=== PATIENT | female | born 1955 | race Caucasian/White ===

== ENCOUNTER 2025-03-07 12:56 | Outpatient (AMB) | payer MEDICARE, SELFPAY ==
[2025-03-07 13:16] VITALS: BP 180/79; PULSE 68; RESP 18; TEMP 36.2; O2SAT 94; BMI 24.6
--- NOTE | 2025-03-07 13:16 | ORTHONT_ITS ---
Vital signs 03/07/25 13:16 Height 1.57 m Height Method Stated Weight 61.037 kg Weight Measurement Method Standing Scale BMI 24.6 BP 180/79 H Blood Pressure Source Automatic Cuff Blood Pressure Location Right Upper Arm Position Sitting Respiration 18 Pulse 68 Pulse Source Monitor Temp 97.2 F Temp Source Temporal Artery Scan Pulse Oximetry (%) 94 L Oxygen Delivery Method Room Air Comment PATIENT FORGOT MEDS Med/Allergies Allergies & Medications Allergies codeine Allergy (Verified 03/07/25 13:17) palpatations Exam Exam Breathing is nonlabored. Patient has a normal mood and affect. Bilateral extremities were evaluated and demonstrates sensation intact to light touch. Palpable pedal pulses are present. No significant edema is present. Bilateral hips were examined. The patient has no pain with log roll of the hips. Internal rotation to 30 degrees and external rotation to 30 degrees is painless. Negative FADIR. Left knee was examined today. The left knee is in reasonable alignment. Range of motion from 0-120 degrees. Knee is stable to varus and valgus as well as AP translation with <5mm. Patient has a negative McMurrays. There is no pain with patellofemoral compression and no crepitus noted. The knee is nontender to palpation. The right knee was also examined. The right knee is in varus alignment. Range of motion from 0-115 degrees. Knee is stable to varus and valgus as well as AP translation with <5mm. Patient has a negative McMurrays. There is no pain with patellofemoral compression and no crepitus noted. The knee is tender to palpation medially. Left knee demonstrates range of motion 0 to 80 degrees. Knee feels stable varus valgus stresses AP translation Assessment and Plan Problem List (1) Arthritis of right knee: Status: Acute Plan: Patient is a 69-year-old female with right knee pain that is been ongoing for several years. She tried Aleve and ibuprofen and has failed treatment. She has not had any injections. I would like to get weightbearing x-rays. She is a little hesitant to get a total knee replacement because of her Stiff left side. I would like to get x-rays of both knees we can discuss different treatment options depending on what that shows. Advanced Care Planning Discussion Advance care planning discussed with:: patient Office Procedures GNS Level of Care Nursing/Assessment Patient Status: Established Patient Nursing Assessment/Reassesment: Medication Reconciliation, Update PMH in EMR and Vital Signs Coordination of Care: Complex Care and Chronic Disease 1-5, Education Complex Pt/Fam, Consent,records obtained, informed consent, Lab and Imaging orders, Results/Orders obtained and Staff clarify orders Special Needs: Language special needs Established Patient Charge Established Patient Point Assignment: 110 Established Patient Point Charge: EP Level 3 (80-115) MA Intake Visit Data Collection New Patient or Established: Established Patient (seen at [facility] within 3 years) Reason for Visit:: BILATERAL KNEE PAIN, LEFT IS WORSE THAN RIGHT Seen by Clinical Staff ONLY (RN/MA): No Verbal consent obtained for Telemed visit?: No [employer] Supervisor Required: Yes PCP or OBGYN visit in last 3 months: Yes Hx Now: No Do You Feel Safe at Home: Yes Authorities Contacted: N/A Questionairres Past Medical History Past Medical History Have you ever been diagnosed with any of the following: Neurological Problems Seizures: No Cardiology Problems Hypercholesterolemia: Yes (NOT TAKING) Congestive Heart Failure: No Edema: No Cellulitis: No Hypertension: Yes (TAKES MED) Varicose Veins: No Respiratory Problems Chronic Obstructive Pulmonary Disease (COPD): No Tuberculosis: No Stomache/Intestinal Problems Hepatitis: No Gastroesophageal Reflux Disease: Yes Obesity: Yes Genital/Urinary Problems Renal Disease: No Reproductive Problems Previous Pregnancies: Yes (X10) Endocrine Problems Diabetes Mellitus Type 1: No Diabetes Mellitus Type 2: Yes (TAKES PO MED) Psychologic Problems Depression: Yes Anxiety: Yes Other Problems Hospitalization: No Shingles: No Falls: No Blood Transfusions: No Blood Transfusion Reaction: No Anesthesia Reactions: No Chemotherapy: No Radiation Therapy: No MRSA: No Chicken Pox: No Measles: Yes Mumps: No Cancer: No Surgical History Hysterectomy: Yes (TOBY WITH FLORIDALMA SALP) Pacemaker: No Subjective Visit Visit for: new patient and knee Immunization / Flu Flu Vaccine in the Last 12 Months: No Flu Vaccine Exclusion Criteria: Refused by Patient History of Present Illness Chief complaint: Bilateral knee pain, left knee is worse than right Date of injury / onset of symptoms: 2 years ago Date of 1st surgery (if applicable): 2 years ago Patient is a pleasant 69-year-old female with right knee pain. She has had injections a long time ago. She tried Aleve and ibuprofen. For the left knee she had a total knee replacement 2 years ago and it was stiff. She had delayed physical therapy. The pain is affecting her quality life and happiness and she is using Personal History Occupation: uneployed Red flag PMH: BMI BMI Counceling provided: Yes Pain Pain level (0-10): 6 Pain duration: all day Pain location: inside (medial), outside (lateral), anterior and posterior Pain quality: sharp, dull and aching Pain timing: increases with activity Associated signs & symptoms: stiffness Ambulatory data Ambulatory device: walker Treatments Improvement with previous injections: No Improvement with PT: No Improvement with NSAIDS: no Review of Systems Review of Systems: All systems negative unless otherwise noted in HPI.
--- NOTE | 2025-03-07 13:24 | XR_ITS ---
Examination: Bilateral knees 2 views Right lateral knee left lateral knee 2 views Right axial knee left axial knee 2 views Technique: Bilateral AP knees standing single view, bilateral PA knees standing single view flexion Standing right lateral knee, left lateral knee 2 views Right axial left axial knee 2 views total 6 views Exam date and time: 2024 1342 hrs. Indications: Knee pain years Findings: Moderate osteopenia Severe narrowing [id number] medial joint space right knee Moderate to advanced osteoarthritis right patellofemoral joint No fracture Total left knee arthroplasty with satisfactory alignment No loosening of the prosthetic components No patellar dislocation Impression: Severe narrowing [id number] medial joint space right knee Moderate to advanced osteoarthritis right patellofemoral joint
== END 2025-03-07 13:45 | disposition home or self-care (01) ==
LOC: HODSRG 12:56
PROVIDERS: PCP Internal Medicine; Referring Provider Internal Medicine; Supervising Provider Orthopaedic Surgery Adult Reconstructive Orthopaedic Surgery; Visit Provider Orthopaedic Surgery Adult Reconstructive Orthopaedic Surgery
DX: M17.11 Unilateral primary osteoarthritis, right knee (principal); M25.561 Pain in right knee; E11.9 Type 2 diabetes mellitus without complications; I10 Essential (primary) hypertension; E78.00 Pure hypercholesterolemia, unspecified
CPT/HCPCS: 73564; 99213; G0463

== ENCOUNTER 2025-03-21 13:26 | Outpatient (AMB) | payer MEDICARE, SELFPAY ==
--- NOTE | 2025-03-21 13:46 | ORTHONT_ITS ---
Vital signs 03/21/25 13:47 Height 1.57 m Height Method Stated Weight 85.757 kg Weight Measurement Method Standing Scale BMI 34.7 BP 189/81 H Blood Pressure Source Automatic Cuff Blood Pressure Location Left Upper Arm Position Sitting Respiration 18 Pulse 64 Pulse Source Monitor Temp 97.4 F Temp Source Temporal Artery Scan Pulse Oximetry (%) 93 L Oxygen Delivery Method Room Air Med/Allergies Allergies & Medications Allergies codeine Allergy (Verified 03/21/25 13:47) palpatations Medication Reconciliation lisinopril 20 mg-hydrochlorothiazide 12.5 mg tablet 1 tab PO QDAY 08/16/21 [His tory Confirmed 03/21/25] metformin 500 mg tablet 500 mg PO QDAY 08/16/21 [History Confirmed 03/21/25] levothyroxine 125 mcg tablet (Synthroid) 150 mcg (1.2 x 125 mcg) PO QDAY Total thyroidectomy #30 tabs 09/11/21 [Rx Confirmed 03/21/25] ondansetron HCl 4 mg tablet (Zofran) 4 mg PO QID PRN nausea and vomiting #20 tabs 09/11/21 [Rx Confirmed 03/21/25] tramadol 50 mg tablet 50 mg PO BID PRN pain #20 tabs 09/11/21 [Rx Confirmed 03/21/25] Exam Exam Breathing is nonlabored. Patient has a normal mood and affect. Bilateral extremities were evaluated and demonstrates sensation intact to light touch. Palpable pedal pulses are present. No significant edema is present. Bilateral hips were examined. The patient has no pain with log roll of the hips. Internal rotation to 30 degrees and external rotation to 30 degrees is painless. Negative FADIR. Left knee was examined today. The left knee is in reasonable alignment. Range of motion from 0-120 degrees. Knee is stable to varus and valgus as well as AP translation with <5mm. Patient has a negative McMurrays. There is no pain with patellofemoral compression and no crepitus noted. The knee is nontender to palpation. The right knee was also examined. The right knee is in varus alignment. Range of motion from 0-115 degrees. Knee is stable to varus and valgus as well as AP translation with <5mm. Patient has a negative McMurrays. There is no pain with patellofemoral compression and no crepitus noted. The knee is tender to palpation medially. Left knee demonstrates range of motion 0 to 80 degrees. Knee feels stable varus valgus stresses AP translation X-rays demonstrate a left total knee replacement good alignment position. There are no radiolucent lines. On the right knee there is significant mbby-hb-bnyq arthritis medially with complete obliteration of the medial joint space and osteophytes Assessment and Plan Problem List (1) Arthritis of right knee: Status: Acute Plan: Patient is a 69-year-old female with right knee pain that is been ongoing for several years. She tried Aleve and ibuprofen and has failed treatment. She has not had any injections. I would like to get weightbearing x-rays. She is a l ittle hesitant to get a total knee replacement because of her Stiff left side.She has qclz-do-byzq arthritis on the right and is interested in a cortisone injection which is reasonable Recommend knee cortisone injection as patient would like to proceed with conservative treatment at this time. The risks and benefits of the procedure were reviewed with the patient and patient gave verbal consent to continue with the procedure. Procedure: performed by Dr. Hussein Using sterile technique the Right knee was thoroughly prepped with alcohol, and approximately 1 cc of Kenalog 40 mg/mL and 4 cc of 1% lidocaine was injected without resistance into the medial tibial femoral joint space. The patient tolerated the procedure. Advanced Care Planning Discussion Advance care planning discussed with:: patient Office Procedures GNS Level of Care Nursing/Assessment Patient Status: Established Patient Nursing Assessment/Reassesment: Medication Reconciliation, Update PMH in EMR and Vital Signs Coordination of Care: Complex Care and Chronic Disease 1-5, Education Complex Pt/Fam, Consent,records obtained, informed consent, Results/Orders obtained and Staff clarify orders Special Needs: Language special needs Established Patient Charge Established Patient Point Assignment: 95 Established Patient Point Charge: EP Level 3 (80-115) Surgical Proc/IM SQ injection Major Surgical Procedure: Yes (KNEE INJECTION ) Medication Given Medication Given Medication Given: Yes Documented Dose Given: 4 Route: Infiitration Medication Given Medication Given Medication Given: Yes Documented Dose Given: 1 Route: Infiitration Office Meds Xylocaine 10 mg/mL (1 %) injection solution Performing Provider: Babak Hussein MD Performing Location: [facility] Administered by: Babak Hussein MD on 03/21/25 14:16 Dose Route Admin Location Dispensed Lot Number Expiration Date [facility] [employer] 20 mL Infiltration 20 mL [id number] 04/30/28 53943-785-40 [employer]HENDRA GARCIA triamcinolone acetonide 40 mg/mL suspension for injection Performing Provider: Babak Hussein MD Performing Location: [facility] Administered by: Babak Hussein MD on 03/21/25 14:16 Dose Route Admin Location Dispensed Lot Number Expiration Date [facility] [employer] 40 mg intra-articular KNEE 1 mL [id number] 08/30/26 4127-3116-28 [facility] Intake Visit Data Collection New Patient or Established: Established Patient (seen at [facility] within 3 years) Reason for Visit:: XRAY RESULTS/INJECTION Full Stack Engineer Required: Yes PCP or OBGYN visit in last 3 months: Yes Hx Now: No Do You Feel Safe at Home: Yes Authorities Contacted: N/A Questionairres Past Medical History Past Medical History Have you ever been diagnosed with any of the following: Neurological Problems Seizures: No Cardiology Problems Hypercholesterolemia: Yes (NOT TAKING) Congestive Heart Failure: No Edema: No Cellulitis: No Hypertension: Yes (TAKES MED) Varicose Veins: No Respiratory Problems Chronic Obstructive Pulmonary Disease (COPD): No Tuberculosis: No Smoking: No Smoking Exposure: No Stomache/Intestinal Problems Hepatitis: No Gastroesophageal Reflux Disease: Yes Obesity: Yes Genital/Urinary Problems Renal Disease: No Reproductive Problems Previous Pregnancies: Yes (X10) Endocrine Problems Diabetes Mellitus Type 1: No Diabetes Mellitus Type 2: Yes (TAKES PO MED) Psychologic Problems Depression: Yes Anxiety: Yes Other Problems Hospitalization: No Shingles: No Falls: No Blood Transfusions: No Blood Transfusion Reaction: No Anesthesia Reactions: No Chemotherapy: No Radiation Therapy: No MRSA: No Chicken Pox: No Measles: Yes Mumps: No Cancer: No Surgical History Hysterectomy: Yes (TOBY WITH FLORIDALMA SALP) Pacemaker: No Subjective Visit Visit for: new patient, follow up visit, knee and x-rays Immunization / Flu Flu Vaccine in the Last 12 Months: No Flu Vaccine Exclusion Criteria: Refused by Patient and No Exclusion Criteria History of Present Illness Chief complaint: Bilateral knee pain, left knee is worse than right Date of injury / onset of symptoms: 2 years ago Date of 1st surgery (if applicable): 2 years ago Patient is a pleasant 69-year-old female with right knee pain. She has had injections a long time ago. She tried Aleve and ibuprofen. For the left knee she had a total knee replacement 2 years ago and it was stiff. She had delayed physical therapy. The pain is affecting her quality life and happiness and she is using Personal History Occupation: uneployed Red flag PMH: BMI BMI Counceling provided: Yes Pain Pain level (0-10): 6 Pain duration: all day Pain location: inside (medial), outside (lateral), anterior and posterior Pain quality: sharp, dull and aching Pain timing: night, increases with activity and stairs Associated signs & symptoms: weakness and stiffness Ambulatory data Ambulatory device: walker Treatments Improvement with previous injections: No Improvement with PT: No Improvement with NSAIDS: no Review of Systems Review of Systems: All systems negative unless otherwise noted in HPI.
[2025-03-21 13:47] VITALS: BP 189/81; PULSE 64; RESP 18; TEMP 36.3; O2SAT 93; BMI 34.7
== END 2025-03-21 13:54 | disposition home or self-care (01) ==
LOC: HODSRG 13:26
PROVIDERS: PCP Internal Medicine; Referring Provider Internal Medicine; Supervising Provider Orthopaedic Surgery Adult Reconstructive Orthopaedic Surgery; Visit Provider Orthopaedic Surgery Adult Reconstructive Orthopaedic Surgery
DX: M17.11 Unilateral primary osteoarthritis, right knee (principal); Z96.652 Presence of left artificial knee joint; E78.00 Pure hypercholesterolemia, unspecified; I10 Essential (primary) hypertension
CPT/HCPCS: 20610; 99213; J3301; J3490; G0463

== ENCOUNTER 2025-06-20 12:50 | Outpatient (AMB) | payer MEDICARE, SELFPAY ==
--- NOTE | 2025-06-20 12:55 | ORTHONT_ITS ---
Vital signs 06/20/25 13:05 Height 1.57 m Height Method Stated Weight 84.964 kg Weight Measurement Method Standing Scale BMI 34.4 BP 123/67 Blood Pressure Source Automatic Cuff Blood Pressure Location Right Upper Arm Position Sitting Respiration 18 Pulse 82 Pulse Source Monitor Temp 97.6 F Temp Source Temporal Artery Scan Pulse Oximetry (%) 92 L Oxygen Delivery Method Room Air Med/Allergies Allergies & Medications Allergies codeine Allergy (Verified 06/20/25 13:06) palpatations Medication Reconciliation lisinopril 20 mg-hydrochlorothiazide 12.5 mg tablet 1 tab PO QDAY 08/16/21 [Hist ory Confirmed 06/20/25] metformin 500 mg tablet 500 mg PO QDAY 08/16/21 [History Confirmed 06/20/25] levothyroxine 125 mcg tablet (Synthroid) 150 mcg (1.2 x 125 mcg) PO QDAY Total thyroidectomy #30 tabs 09/11/21 [Rx Confirmed 06/20/25] ondansetron HCl 4 mg tablet (Zofran) 4 mg PO QID PRN nausea and vomiting #20 tabs 09/11/21 [Rx Confirmed 06/20/25] tramadol 50 mg tablet 50 mg PO BID PRN pain #20 tabs 09/11/21 [Rx Confirmed 06/20/25] Exam Exam Breathing is nonlabored. Patient has a normal mood and affect. Bilateral extremities were evaluated and demonstrates sensation intact to light touch. Palpable pedal pulses are present. No significant edema is present. Bilateral hips were examined. The patient has no pain with log roll of the hips. Internal rotation to 30 degrees and external rotation to 30 degrees is painless. Negative FADIR. Left knee was examined today. The left knee is in reasonable alignment. Range of motion from 0-120 degrees. Knee is stable to varus and valgus as well as AP translation with <5mm. Patient has a negative McMurrays. There is no pain with patellofemoral compression and no crepitus noted. The knee is nontender to palpation. The right knee was also examined. The right knee is in varus alignment. Range of motion from 0-115 degrees. Knee is stable to varus and valgus as well as AP translation with <5mm. Patient has a negative McMurrays. There is no pain with patellofemoral compression and no crepitus noted. The knee is tender to palpation medially. Left knee demonstrates range of motion 0 to 80 degrees. Knee feels stable varus valgus stresses AP translation X-rays demonstrate a left total knee replacement good alignment position. There are no radiolucent lines. On the right knee there is significant [id number] arthritis medially with complete obliteration of the medial joint space and osteophytes Assessment and Plan Problem List (1) Arthritis of right knee: Status: Acute Plan: Patient is a 69-year-old female with right knee pain that is been ongoing for several years. She tried Aleve and ibuprofen and has failed treatment. She has not had any injections. I would like to get weightbearing x-rays. She is a li ttle hesitant to get a total knee replacement because of her Stiff left side.She has [id number] arthritis on the right and is interested in a cortisone injection which is reasonable Recommend knee cortisone injection as patient would like to proceed with conservative treatment at this time. The risks and benefits of the procedure were reviewed with the patient and patient gave verbal consent to continue with the procedure. Procedure: performed by Dr. Hussein Using sterile technique the Right knee was thoroughly prepped with alcohol, and approximately 1 cc of Kenalog 40 mg/mL and 4 cc of 1% lidocaine was injected without resistance into the medial tibial femoral joint space. The patient tolerated the procedure. Advanced Care Planning Discussion Advance care planning discussed with:: patient Office Procedures GNS Level of Care Nursing/Assessment Patient Status: Established Patient Nursing Assessment/Reassesment: Medication Reconciliation, Update PMH in EMR and Vital Signs Coordination of Care: Complex Care and Chronic Disease 1-5, Education Complex Pt/Fam, Consent,records obtained, informed consent, Results/Orders obtained and Staff clarify orders Special Needs: Language special needs Established Patient Charge Established Patient Point Assignment: 95 Established Patient Point Charge: EP Level 3 (80-115) Medication Given Medication Given Medication Given: Yes Documented Dose Given: 4 Route: Infiitration Medication Given Medication Given Medication Given: Yes Documented Dose Given: 1 Route: Infiitration Office Meds Xylocaine 10 mg/mL (1 %) injection solution Performing Provider: Babak Hussein MD Performing Location: [facility] Administered by: Babak Hussein MD on 06/20/25 13:18 Dose Route Admin Location Dispensed Lot Number Expiration Date [facility] Production Control Supervisor 20 mL Infiltration KNEE 20 mL [id number] 08/29/28 77579-442-86 MAHENDRA WEBB triamcinolone acetonide 40 mg/mL suspension for injection Performing Provider: Babak Hussein MD Performing Location: [facility] Administered by: Babak Hussein MD on 06/20/25 13:18 Dose Route Admin Location Dispensed Lot Number Expiration Date [facility] Production Control Supervisor 40 mg intra-articular KNEE 1 mL [id number] 12/30/26 78077-858-72 WOO COLLINS MA Intake Visit Data Collection New Patient or Established: Established Patient (seen at [facility] within 3 years) Reason for Visit:: 3 MONTH RIGHT KNEE INJECTION Seen by Clinical Staff ONLY (RN/MA): No Office Services Specialist Required: Yes PCP or OBGYN visit in last 3 months: Yes Hx Now: No Do You Feel Safe at Home: Yes Authorities Contacted: N/A Questionairres Past Medical History Past Medical History Have you ever been diagnosed with any of the following: Neurological Problems Cerebrovascular Accident (CVA): No Transient Ischemic Attacks (TIA): No Dementia: No Alzheimer's Disease: No Parkinson's Disease: No Brain Tumor: No Meningitis: No Seizures: No Epilepsy: No Multiple Sclerosis: No Cerebral Palsy: No Amyotrophic Lateral Sclerosis (ALS/Francheska Gehrig's): No Guillain-[place] Syndrome: No Spina Bifida: No Paralysis: No Peripheral Neuropathy: No Dodson's Palsy: No Subdural Hematoma: No Migraine: No Head Trauma: No Spinal Cord Injury: No Traumatic Brain Injury: No Cardiology Problems Myocardial Infarction: No Cardiac Arrhythmia: No Atrial Fibrillation: No Angina: No Heart Murmur: No Coronary Artery Disease: No Atherosclerotic Heart Disease: No Peripheral Vascular Disease: No Hypercholesterolemia: Yes (NOT TAKING) Aneurysm: No Congestive Heart Failure: No Congenital Heart Disease: No Valvular Heart Disease: No Rheumatic Fever: No Cardiomyopathy: No Edema: No Pericarditis: No Cellulitis: No Deep Vein Thrombosis: No Hypertension: Yes (TAKES MED) Hypotension: No Varicose Veins: No Respiratory Problems Chronic Obstructive Pulmonary Disease (COPD): No Asthma: No Bronchitis: No Emphysema: No Pneumonia: No Pulmonary Fibrosis: No Tuberculosis: No Pulmonary Embolism: No Pulmonary Edema: No Sleep Apnea: No CPAP Dependent: No Respiratory Aspiration: No Dyspnea: No Orthopnea: No Hx Cough: No Cough: No Wheezing: No Chest Deformities: No Smoking: No Smoking Cessation Counseling: No Smoking Exposure: No Tobacco Use: No Clubbing: No Exposure to Respiratory Irritants: No Intubation: No Stomache/Intestinal Problems Liver Cancer: No Hepatitis: No Cirrhosis: No Pancreatic Cancer: No Pancreatitis: No Celiac Disease: No Gall Bladder Disease: No Gastrointestinal Bleed: No Esophageal Varices: No Oneill's Esophagus: No Colitis: No Ulcerative Colitis: No Diverticulitis: No Diverticulosis: No Ulcer: No Colorectal Cancer: No Irritable Bowel: No Crohn's Disease: No Obstructive Bowel: No Hiatal Hernia: No Hemorrhoids: No Gastroesophageal Reflux Disease: Yes Polyps: No Obesity: Yes Genital/Urinary Problems Chronic Kidney Disease: No Renal Disease: No Kidney Stones: No Polycystic Kidney Disease: No Neurogenic Bladder: No Inguinal Hernia: No Dialysis: No Reproductive Problems Breast Cancer: No Endometriosis: No Fibroids: No Genital Herpes: No Gonorrhea: No Pelvic Inflammatory Disease: No Polycystic Ovarian Syndrome: No Previous Pregnancies: Yes (X10) Syphilis: No Uterine Prolapse: No Musculoskeletal Problems Muscular Dystrophy: No Myasthenia Gravis: No Marfan's Syndrome: No Bone Cancer: No Arthritis: No Rheumatoid Arthritis: No Osteoporosis: No Degenerative Disk Disease: No Gout: No Scoliosis: No Carpal Tunnel Syndrome: No Fibromyalgia: No Fractures: No Degenerative Joint Disease: No Osteomyelitis: No Poliovirus: No Head,Eye,Nose,Throat Problems Cataracts: No Glaucoma: No Blind: No Retinal Detachment: No Macular Degeneration: No Chronic Ear Infections: No Deafness: No Eye Prosthesis: No Endocrine Problems Diabetes Mellitus Type 1: No Diabetes Mellitus Type 2: Yes (TAKES PO MED) Hypoglycemia: No Morrison's Syndrome: No Oberon's Disease: No Hyperthyroidism: No Hypothyroidism: No Thyroid Cancer: No Parathyroid Disease: No Pituitary Disease: No Systemic Lupus Erythematosus: No Syndrome of Inappropriate Antidiuretic Hormone: No Adrenal Disease: No Graves' Disease: No Blood Problems Anemia: No Leukemia: No Hemophilia: No Thalassemia: No Sickle Cell Disease: No Clotting Problems: No Psychologic Problems Schizophrenia: No Recreational Drug Use: No Bipolar Disorder: No Depression: Yes Anxiety: Yes Behavior Problems: No Self-Mutilation: No Attention Deficit Disorder: No Attention Deficit Hyperactivity Disorder: No Depression: No Post Traumatic Stress Disorder: No Eating Disorder: No Other Problems Hospitalization: No Autoimmune Disease: No Down Syndrome: No Autism: No Developmental Delay: No Cosmetic Surgery: No Shingles: No Falls: No Blood Transfusions: No Blood Transfusion Reaction: No Anesthesia Reactions: No Organ Transplant: No Chemotherapy: No Radiation Therapy: No Hyperbaric Therapy: No MRSA: No VRSA: No Vancomycin-Resistant Enterococci: No Human Immunodeficiency Virus (HIV): No Chicken Pox: No Measles: Yes Mumps: No Rubella (Syriac Measles): No Pertussis: No Klebsiella Pneumoniae Carbapenemase Producing Bacteria: No Clostridium Difficile: No Hepatitis A: No Hepatitis B: No Hepatitis C: No Communicable Disease: No Cancer: No Cervical Cancer: No Lung Cancer: No Ovarian Cancer: No Surgical History Angioplasty: No Appendectomy: No Bariatric Surgery: No Breast Surgery: No Cancer Surgery: No Carotid Endarterectomy: No Cholecystectomy: No Colectomy: No Colostomy: No Coronary Artery Bypass Graft: No Valve Replacement: No Herniorrhaphy: No Total Hip Replacement: No Total Knee Replacement: No Hysterectomy: Yes (TOBY WITH FLORIDALMA SALP) Pacemaker: No Sinus Surgery: No Splenectomy: No TAHBSO-Total Abdominal Hysterectomy: No Thyroidectomy: No Ureter Stent: No Subjective Visit Visit for: follow up visit and knee Immunization / Flu Flu Vaccine in the Last 12 Months: No Flu Vaccine Exclusion Criteria: No Exclusion Criteria History of Present Illness Chief complaint: RIGHT KNEE INJECTION Date of injury / onset of symptoms: 2 years ago Date of 1st surgery (if applicable): 2 years ago Patient is a pleasant 69-year-old female with right knee pain. She has had injections a long time ago. She tried Aleve and ibuprofen. For the left knee she had a total knee replacement 2 years ago and it was stiff. She had delayed physical therapy. The pain is affecting her quality life and happiness and she is using [employer]. She did well with the last injection would like another 1 today Personal History Occupation: uneployed Red flag PMH: none BMI Counceling provided: Yes Pain Pain level (0-10): 5 Pain duration: all day Pain location: anterior Pain quality: sharp Pain timing: increases with activity Associated signs & symptoms: stiffness Ambulatory data Ambulatory device: cane Treatments Number of previous injections: 1 Improvement with previous injections: Yes Improvement with PT: No Improvement with NSAIDS: no Review of Systems Review of Systems: All systems negative unless otherwise noted in HPI.
[2025-06-20 13:05] VITALS: BP 123/67; PULSE 82; RESP 18; TEMP 36.4; O2SAT 92; BMI 34.4
== END 2025-06-20 13:09 | disposition home or self-care (01) ==
LOC: HODSRG 12:50
PROVIDERS: PCP Internal Medicine; Referring Provider Internal Medicine; Supervising Provider Orthopaedic Surgery Adult Reconstructive Orthopaedic Surgery; Visit Provider Orthopaedic Surgery Adult Reconstructive Orthopaedic Surgery
DX: M17.11 Unilateral primary osteoarthritis, right knee (principal); M25.561 Pain in right knee; I10 Essential (primary) hypertension; E78.00 Pure hypercholesterolemia, unspecified; K21.9 Gastro-esophageal reflux disease without esophagitis; E11.9 Type 2 diabetes mellitus without complications
CPT/HCPCS: 20610; 99213; J3301; J3490; G0463

== ENCOUNTER 2025-09-19 13:19 | Outpatient (AMB) | payer MEDICARE, SELFPAY ==
[2025-09-19 13:44] VITALS: BP 181/80; PULSE 73; RESP 19; TEMP 36.8; O2SAT 94; BMI 35.7
--- NOTE | 2025-09-19 13:44 | PD.ORTHCLVIS ---
Vital signs 09/19/25 13:44 Height 1.57 m Height Method Stated Weight 88.054 kg Weight Measurement Method Standing Scale BMI 35.7 BP 181/80 H Blood Pressure Source Automatic Cuff Blood Pressure Location Right Upper Arm Position Sitting Respiration 19 Pulse 73 Pulse Source Monitor Temp 98.3 F Temp Source Temporal Artery Scan Pulse Oximetry (%) 94 L Oxygen Delivery Method Room Air Med/Allergies Allergies & Medications Allergies codeine Allergy (Verified 09/19/25 13:45) palpatations Medication Reconciliation lisinopril 20 mg-hydrochlorothiazide 12.5 mg tablet 1 tab PO QDAY 08/16/21 [History Confirmed 09/19/25] metformin 500 mg tablet 500 mg PO QDAY 08/16/21 [History Confirmed 09/19/25] levothyroxine 125 mcg tablet (Synthroid) 150 mcg (1.2 x 125 mcg) PO QDAY Total thyroidectomy #30 tabs 09/11/21 [Rx Confirmed 09/19/25] ondansetron HCl 4 mg tablet (Zofran) 4 mg PO QID PRN nausea and vomiting #20 tabs 09/11/21 [Rx Confirmed 09/19/25] tramadol 50 mg tablet 50 mg PO BID PRN pain #20 tabs 09/11/21 [Rx Confirmed 09/19/25] Exam Exam Breathing is nonlabored. Patient has a normal mood and affect. Bilateral extremities were evaluated and demonstrates sensation intact to light touch. Palpable pedal pulses are present. No significant edema is present. Bilateral hips were examined. The patient has no pain with log roll of the hips. Internal rotation to 30 degrees and external rotation to 30 degrees is painless. Negative FADIR. Left knee was examined today. The left knee is in reasonable alignment. Range of motion from 0-120 degrees. Knee is stable to varus and valgus as well as AP translation with <5mm. Patient has a negative McMurrays. There is no pain with patellofemoral compression and no crepitus noted. The knee is nontender to palpation. The right knee was also examined. The right knee is in varus alignment. Range of motion from 0-115 degrees. Knee is stable to varus and valgus as well as AP translation with <5mm. Patient has a negative McMurrays. There is no pain with patellofemoral compression and no crepitus noted. The knee is tender to palpation medially. Left knee demonstrates range of motion 0 to 80 degrees. Knee feels stable varus valgus stresses AP translation X-rays demonstrate a left total knee replacement good alignment position. There are no radiolucent lines. On the right knee there is significant mekh-[id number]-[id number] arthritis medially with complete obliteration of the medial joint space and osteophytes Assessment and Plan Problem List (1) Arthritis of right knee: Status: Acute Plan: Patient is a 69-year-old female with right knee pain that is been ongoing for several years. She tried Aleve and ibuprofen and has failed treatment. She has not had any injections. I would like to get weightbearing x-rays. She is a little hesitant to get a total knee replacement because of her Stiff left side . She has enyb-xl-[id number] arthritis on the right and has failed conservative treatment with proceed with a right total knee replacement The nature and purpose of the total knee replacement, alternative method(s) of treatment, the material risks involved, and the possibility of complications were fully explained to the patient. The patient does NOT have any of the following contraindications to TKA: - Active infection of the knee joint, OR - Active systemic bacteremia, OR - Active skin infection or open wound at surgical site, OR - Neuropathic arthritis, OR - Severe, rapidly progressive neurological disease, OR - Severe medical condition that makes risks of surgery outweigh the potential benefit The patient was told the most common risks and complications associated with a total knee replacement include, but are not limited to: blood clots in the leg, fatal pulmonary embolism, dislocation of the prosthesis, intraoperative and postoperative fractures of the femur or tibia, infection, failure of the prosthesis or grafting materials, complications from anesthesia, reactions to blood transfusions, postoperative leg length inequality, instability of the knee replacement, nerve damage or injury, vascular injury, delayed wound healing, infection, other injury or even . In addition, there are risks associated with anesthesia given during this operation. Also, the patient was told that after undergoing a total knee replacement there may still be persistent pain or disability. The patient was informed that the success of this operation in part depends upon the mechanical devices which are going to be implanted and that these devices can fail or malfunction, and may need to be repaired or replaced and there are no guarantees as to the longevity of this device or its parts and that it or its parts could fail prematurely. The patient was also notified that during the course of surgery, there may be a need to use bone graft from donors, and that any bone graft used will be carefully screened for communicable diseases, including AIDS, hepatitis, Bala-Creutzfeldt, or other diseases, but despite the screening procedures, there is a small chance that they could contract one of these diseases. Finally, the patient was asked to follow completely and fully with all advice and recommended treatments, and that recovery and ultimate outcome are affected by their compliance with recommended treatment. We discussed the risks, benefits and treatment alternatives, and the patient is interested in proceeding with surgery. We will try to set this up as expeditiously as possible. Advanced Care Planning Discussion Advance care planning discussed with:: patient Office Procedures GNS Level of Care Nursing/Assessment Patient Status: Established Patient Nursing Assessment/Reassesment: Medication Reconciliation, Update PMH in EMR and Vital Signs Coordination of Care: Complex Care and Chronic Disease 1-5, Education Complex Pt/Fam, Consent,records obtained, informed consent, Results/Orders obtained and Staff clarify orders Established Patient Charge Established Patient Point Assignment: 95 Established Patient Point Charge: EP Level 3 (80-115) MA Intake Visit Data Collection New Patient or Established: Established Patient (seen at [facility] within 3 years) Reason for Visit:: FOLLOW UP Seen by Clinical Staff ONLY (RN/MA): No Verbal consent obtained for Telemed visit?: No Production Lead Required: Yes PCP or OBGYN visit in last 3 months: Yes Hx Now: No Do You Feel Safe at Home: Yes Authorities Contacted: N/A Questionairres Past Medical History Past Medical History Have you ever been diagnosed with any of the following: Neurological Problems Cerebrovascular Accident (CVA): No Transient Ischemic Attacks (TIA): No Dementia: No Alzheimer's Disease: No Parkinson's Disease: No Brain Tumor: No Meningitis: No Seizures: No Epilepsy: No Multiple Sclerosis: No Cerebral Palsy: No Amyotrophic Lateral Sclerosis (ALS/Francheska Gehrig's): No Guillain-Richfield Syndrome: No Spina Bifida: No Paralysis: No Peripheral Neuropathy: No Dodson's Palsy: No Subdural Hematoma: No Migraine: No Head Trauma: No Spinal Cord Injury: No Traumatic Brain Injury: No Cardiology Problems Myocardial Infarction: No Cardiac Arrhythmia: No Atrial Fibrillation: No Angina: No Heart Murmur: No Coronary Artery Disease: No Atherosclerotic Heart Disease: No Peripheral Vascular Disease: No Hypercholesterolemia: Yes (NOT TAKING) Aneurysm: No Congestive Heart Failure: No Congenital Heart Disease: No Valvular Heart Disease: No Rheumatic Fever: No Cardiomyopathy: No Edema: No Pericarditis: No Cellulitis: No Deep Vein Thrombosis: No Hypertension: Yes (TAKES MED) Hypotension: No Varicose Veins: No Respiratory Problems Chronic Obstructive Pulmonary Disease (COPD): No Asthma: No Bronchitis: No Emphysema: No Pneumonia: No Pulmonary Fibrosis: No Tuberculosis: No Pulmonary Embolism: No Pulmonary Edema: No Sleep Apnea: No CPAP Dependent: No Respiratory Aspiration: No Dyspnea: No Orthopnea: No Hx Cough: No Cough: No Wheezing: No Chest Deformities: No Smoking: No Smoking Cessation Counseling: No Smoking Exposure: No Tobacco Use: No Clubbing: No Exposure to Respiratory Irritants: No Intubation: No Stomache/Intestinal Problems Liver Cancer: No Hepatitis: No Cirrhosis: No Pancreatic Cancer: No Pancreatitis: No Celiac Disease: No Gall Bladder Disease: No Gastrointestinal Bleed: No Esophageal Varices: No Oneill's Esophagus: No Colitis: No Ulcerative Colitis: No Diverticulitis: No Diverticulosis: No Ulcer: No Colorectal Cancer: No Irritable Bowel: No Crohn's Disease: No Obstructive Bowel: No Hiatal Hernia: No Hemorrhoids: No Gastroesophageal Reflux Disease: Yes Obesity: Yes Genital/Urinary Problems Renal Disease: No Kidney Stones: No Polycystic Kidney Disease: No Neurogenic Bladder: No Inguinal Hernia: No Dialysis: No Reproductive Problems Breast Cancer: No Endometriosis: No Fibroids: No Genital Herpes: No Gonorrhea: No Pelvic Inflammatory Disease: No Polycystic Ovarian Syndrome: No Previous Pregnancies: Yes (X10) Syphilis: No Uterine Prolapse: No Musculoskeletal Problems Muscular Dystrophy: No Myasthenia Gravis: No Marfan's Syndrome: No Bone Cancer: No Arthritis: No Rheumatoid Arthritis: No Osteoporosis: No Degenerative Disk Disease: No Gout: No Scoliosis: No Carpal Tunnel Syndrome: No Fibromyalgia: No Fractures: No Degenerative Joint Disease: No Osteomyelitis: No Poliovirus: No Head,Eye,Nose,Throat Problems Cataracts: No Glaucoma: No Blind: No Retinal Detachment: No Macular Degeneration: No Chronic Ear Infections: No Deafness: No Eye Prosthesis: No Endocrine Problems Diabetes Mellitus Type 1: No Diabetes Mellitus Type 2: Yes (TAKES PO MED) Hypoglycemia: No [place]'s Syndrome: No Hendricks's Disease: No Hyperthyroidism: No Hypothyroidism: No Thyroid Cancer: No Parathyroid Disease: No Pituitary Disease: No Systemic Lupus Erythematosus: No Syndrome of Inappropriate Antidiuretic Hormone: No Adrenal Disease: No Graves' Disease: No Blood Problems Anemia: No Leukemia: No Hemophilia: No Thalassemia: No Sickle Cell Disease: No Clotting Problems: No Psychologic Problems Schizophrenia: No Recreational Drug Use: No Bipolar Disorder: No Depression: Yes Anxiety: Yes Behavior Problems: No Self-Mutilation: No Attention Deficit Disorder: No Attention Deficit Hyperactivity Disorder: No Depression: No Post Traumatic Stress Disorder: No Eating Disorder: No Other Problems Hospitalization: No Down Syndrome: No Autism: No Developmental Delay: No Cosmetic Surgery: No Shingles: No Falls: No Blood Transfusions: No Blood Transfusion Reaction: No Anesthesia Reactions: No Organ Transplant: No Chemotherapy: No Radiation Therapy: No Hyperbaric Therapy: No MRSA: No VRSA: No Vancomycin-Resistant Enterococci: No Human Immunodeficiency Virus (HIV): No Chicken Pox: No Measles: Yes Mumps: No Rubella (Kiswahili Measles): No Pertussis: No Klebsiella Pneumoniae Carbapenemase Producing Bacteria: No Clostridium Difficile: No Hepatitis A: No Hepatitis B: No Hepatitis C: No Communicable Disease: No Cancer: No Cervical Cancer: No Lung Cancer: No Ovarian Cancer: No Surgical History Angioplasty: No Appendectomy: No Bariatric Surgery: No Breast Surgery: No Cancer Surgery: No Carotid Endarterectomy: No Cholecystectomy: No Colectomy: No Colostomy: No Coronary Artery Bypass Graft: No Valve Replacement: No Herniorrhaphy: No Total Hip Replacement: No Total Knee Replacement: No Hysterectomy: Yes (TOBY WITH FLORIDALMA SALP) Pacemaker: No Sinus Surgery: No Splenectomy: No TAHBSO-Total Abdominal Hysterectomy: No Thyroidectomy: No Ureter Stent: No Subjective Visit Visit for: follow up visit Immunization / Flu Flu Vaccine in the Last 12 Months: No Flu Vaccine Exclusion Criteria: No Exclusion Criteria History of Present Illness Chief complaint: FOLLOW UP Date of injury / onset of symptoms: 2 years ago Date of 1st surgery (if applicable): 2 years ago Patient is a pleasant 69-year-old female with right knee pain. She has had injections a long time ago. She tried Aleve and ibuprofen. For the left knee she had a total knee replacement 2 years ago and it was stiff. She had delayed physical therapy. The pain is affecting her quality life and happiness and she is using awalker. She has tried NSAIDS, PT, and multiple injections. Personal History Occupation: uneployed Red flag PMH: BMI BMI Counceling provided: Yes Pain Pain level (0-10): 2 Pain duration: COMES AND GOES Pain location: anterior Pain quality: dull and aching Pain timing: increases with activity Associated signs & symptoms: none Ambulatory data Ambulatory device: cane Treatments Number of previous injections: 1 Improvement with previous injections: No Improvement with PT: No Improvement with NSAIDS: no Review of Systems Review of Systems: All systems negative unless otherwise noted in HPI.
== END 2025-09-19 14:02 | disposition home or self-care (01) ==
LOC: HODSRG 13:19
PROVIDERS: PCP Internal Medicine; Referring Provider Internal Medicine; Supervising Provider Orthopaedic Surgery Adult Reconstructive Orthopaedic Surgery; Visit Provider Orthopaedic Surgery Adult Reconstructive Orthopaedic Surgery
DX: M25.561 Pain in right knee (principal); M17.11 Unilateral primary osteoarthritis, right knee; I10 Essential (primary) hypertension; E66.9 Obesity, unspecified; Z68.35 Body mass index [BMI] 35.0-35.9, adult
CPT/HCPCS: 99213; G0463

== ENCOUNTER → 2025-10-18 | Outpatient (CLI) | payer MEDICARE, SELFPAY ==
--- NOTE | 2025-10-18 10:00 | XR_ITS ---
Examination: CT right lower extremity without contrast. 2-D sagittal reconstructions. 2-D coronal reconstructions. 3-D reconstructions. Date and time of exam: October 18, 2025, 1004 hours INDICATIONS: Diagnosis primary unilateral right knee osteoarthritis, knee pain 7 years CTDI: vol (mGy): 14.7 DLP: (mGycm): 949 Technique: Multiple 1.25 mm axial sections of the right lower extremity without intravenous contrast have been obtained. 2-D sagittal and coronal reconstructions have been obtained. 3-D reconstructions have been obtained. Low dose protocols were performed. One or more of the following dose reduction techniques were used; automated exposure control, adjustment of the mA and/or KV according to patient size, use of iterative reconstruction technique. Findings: Significant osteopenia Moderate narrowing both right and left hip joints No hip fractures or hip dislocations Severe narrowing medial joint space right knee Moderate osteoarthritis lateral patellofemoral joints right knee IMPRESSION: Severe narrowing medial joint space right knee
== END | disposition home or self-care (01) ==
LOC: CCTX 09:36
PROVIDERS: Referring Provider Orthopaedic Surgery Adult Reconstructive Orthopaedic Surgery; Visit Provider Orthopaedic Surgery Adult Reconstructive Orthopaedic Surgery
DX: M25.861 Other specified joint disorders, right knee (principal)
CPT/HCPCS: 73700